=== PATIENT | female | born 1930 | race Caucasian/White ===

== ENCOUNTER 2016-04-18 10:19 | Outpatient (CLI) | payer MEDICARE ==
[2016-04-18 12:08] LABS: #Basophils 0.1 thou/uL (0.0-0.2); #Eosinphils 0.3 thou/uL (0.0-0.7); #Lymphocytes 1.8 thou/uL (1.20-3.40); #Monocytes 0.7 thou/uL (0.11-0.59); #Neutrophils 5.2 thou/uL (1.40-6.50); %Basophils 0.7 % (0.0-1.0); %Eosinophils 3.8 % (0.0-10.0); %Monocytes 8.4 % (0.0-10.0); Hematocrit 39.6 % (36.0-47.0); Mean Platelet Volume 5.6 fL (7.4-10.4); Red Blood Cell (RBC) Count 4.02 mill/uL (4.20-5.40)
[2016-04-18 12:17] LABS: ALT (SGPT) 16 U/L (0-55); AST (SGOT) 19 U/L (5-34); Alkaline Phosphatase 104 U/L (40-150); Anion Gap 15 mmol/L (10-20); BUN (Urea Nitrogen) 17 mg/dL (9.8-20.1); Bilirubin, Total 0.7 mg/dL (0.2-1.2); Calc. Creatinine Clearance 0 mL/min (70-130); Calcium 9.9 mg/dL (7.8-10.44); Carbon Dioxide 29 mmol/L (23-31); Chloride 101 mmol/L (98-107); Estimated GFR-MDRD 30; Globulin 3.3 g/dL (2.4-3.5); LDL Cholesterol, Calculated 60 mg/dL; Protein, Total 7.6 g/dL (5.8-8.1)
== END 2016-04-18 10:20 | disposition home or self-care (01) ==
LOC: HPCALD 10:19
PROVIDERS: ATTEND Family Medicine
DX: E78.5 Hyperlipidemia, unspecified (principal); I10 Essential (primary) hypertension
CPT/HCPCS: 36415; 80053; 80061; 85025

== ENCOUNTER 2016-09-26 10:42 | Outpatient (CLI) | payer MEDICARE ==
[2016-09-26 11:22] LABS: ALT (SGPT) 18 U/L (8-55); AST (SGOT) 20 U/L (5-34); Albumin 4.4 g/dL (3.4-4.8); Alkaline Phosphatase 99 U/L (40-150); Anion Gap 15 mmol/L (10-20); BUN (Urea Nitrogen) 17 mg/dL (9.8-20.1); Bilirubin, Direct 0.3 mg/dL (0.1-0.3); Bilirubin, Total 0.8 mg/dL (0.2-1.2); Calc. Creatinine Clearance 0 mL/min (70-130); Calcium 10.4 mg/dL (7.8-10.44); Carbon Dioxide 26 mmol/L (23-31); Cardiac Risk 4.8 (Less than 4.5); Chloride 105 mmol/L (98-107); Cholesterol 124 mg/dl (< 200 Desired); Estimated GFR-MDRD 40; Glucose 106 mg/dL (83-110); HDL Cholesterol 26 mg/dL (>60 Neg Risk); LDL Cholesterol, Calculated 61 mg/dL; Protein, Total 8.2 g/dL (6.0-8.3); Sodium 142 mmol/L (136-145); Triglycerides 184 mg/dL (Less than 150)
== END 2016-09-26 10:43 | disposition home or self-care (01) ==
LOC: BURLAB 10:42
PROVIDERS: ATTEND Internal Medicine Cardiovascular Disease
DX: E78.00 Pure hypercholesterolemia, unspecified (principal); I25.10 Atherosclerotic heart disease of native coronary artery without angina pectoris; E66.9 Obesity, unspecified
CPT/HCPCS: 36415; 80048; 80061; 80076

== ENCOUNTER 2018-02-21 11:59 | Emergency (ER) | payer MEDICARE ==
--- NOTE | 2018-02-21 19:30 | RAD ---
LEFT LEG TWO VIEWS: 02/21/18 The tibia and fibula both appear intact. No fractures were seen. Degenerative changes at the knee are minimal for age. There is some mild reticulation of the soft tissues indicating some swelling. IMPRESSION: No significant bony finding. POS: HOME
== END 2018-02-21 13:07 | disposition home or self-care (01) ==
LOC: BURERS 11:59
DX: S80.12XA Contusion of left lower leg, initial encounter (principal); I48.91 Unspecified atrial fibrillation; E78.5 Hyperlipidemia, unspecified; I10 Essential (primary) hypertension; Z79.899 Other long term (current) drug therapy; W19.XXXA Unspecified fall, initial encounter

== ENCOUNTER 2018-03-22 14:56 | Outpatient (CLI) | payer MEDICARE ==
--- NOTE | 2018-03-22 18:06 | RAD ---
LUMBAR SPINE THREE VIEWS: 03/22/2018 FINDINGS: Review of a 2014 MRI report was made. The patient has known scoliosis and extensive, severe degenera tive changes. Compared to the 2014 MRI, the L3 vertebral body seems slightly compressed. There are degenerated dis ks at all lumbar levels; however, there seems to be a little more narrowing at L4-L5 than before and perhaps a little more at L2-L3. Large anterior osteophytes are present. The SI joints are symmetric al. Dense calcification of the aorta is noted. IMPRESSION: 1. Moderately severe scoliosis with advanced degenerative changes throughout. 2. Multilevel degenerative disk disease, some disk spaces seeming a bit more narrow than in 2014. 3. There may be some very slight compression of L3, compared to the 2014 MRI. The patient would be best assessed by MRI. POS: HOME
== END 2018-03-22 14:57 | disposition home or self-care (01) ==
LOC: BURRAD 14:56
PROVIDERS: ATTEND Family Medicine
DX: M54.5 Low back pain (principal); M47.816 Spondylosis without myelopathy or radiculopathy, lumbar region; M51.36 Other intervertebral disc degeneration, lumbar region; M41.9 Scoliosis, unspecified
CPT/HCPCS: 72100

== ENCOUNTER 2018-04-01 10:36 | Emergency (ER) | payer MEDICARE | END 2018-04-01 11:07 | disposition home or self-care (01) | LOC: BURERS 10:36 | DX: L27.0 Generalized skin eruption due to drugs and medicaments taken internally (principal); T37.8X5A Adverse effect of other specified systemic anti-infectives and antiparasitics, initial encounter; I48.91 Unspecified atrial fibrillation; E78.5 Hyperlipidemia, unspecified; I10 Essential (primary) hypertension; Z79.899 Other long term (current) drug therapy; Z79.891 Long term (current) use of opiate analgesic | CPT/HCPCS: 99282 ==

== ENCOUNTER 2018-09-11 15:15 | Outpatient (CLI) | payer MEDICARE ==
--- NOTE | 2018-09-11 23:28 | CT ---
CT ABDOMEN AND PELVIS WITH CONTRAST: 09/11/2018 COMPARISON: 01/01/2016 TECHNIQUE: Axial slices were acquired after giving oral and IV contrast. Coronal reconstructions were then done . FINDINGS: ABDOMEN: The lung bases are clear. There are no effusions. A large hiatal hernia is noted centrall y, as before. The liver, spleen, pancreas, and gallbladder show no acute findings. No adrenal lencho s are seen. The aorta shows dense arteriosclerosis but no aneurysm. I would note that the patient's SMA, in particular, seems almost completely calcified at its origin. I am not sure if it might be o ccluded or not but, looking back at the prior scan, it looked the same then. There is a 2.5 cm cystic structure in the left kidney that has really not changed markedly over time. It is a water density. No stones, hydronephrosis, or ureteral calculi are seen. The bowel shows no distention to suggest obstruction. There are numerous diverticula in the left col on, which become somewhat severe in the sigmoid region. In spite of this, there is no large amount o f streaking to confidently diagnose diverticulitis at this time. Low level inflammation might be mis sed by this study, however. No free air or free fluid is seen. PELVIS: CT of the pelvis shows no pelvic masses, fluid collections, or acute inflammatory changes. Severe degenerative changes are present throughout the lumbar spine. IMPRESSION: 1. Large hiatal hernia, similar to older studies. 2. Presumed large cyst of the left kidney, little change director time. 3. Diverticulosis, particularly severe in the sigmoid region. There are no clear findings of divert iculitis at the moment. 4. 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 POS: HOME
== END 2018-09-11 15:16 | disposition home or self-care (01) ==
LOC: BURCT 15:15
PROVIDERS: ATTEND Family Medicine
DX: Z01.818 Encounter for other preprocedural examination (principal); R10.32 Left lower quadrant pain; K57.30 Diverticulosis of large intestine without perforation or abscess without bleeding; K55.1 Chronic vascular disorders of intestine; K44.9 Diaphragmatic hernia without obstruction or gangrene
CPT/HCPCS: 36415; 74177; 82565

== ENCOUNTER 2018-11-01 15:18 | Emergency (ER) | payer MEDICARE ==
[2018-11-01 15:42] LABS: Bilirubin Negative (Negative); Blood, Urine Moderate (Negative); Clarity Turbid (Clear); Glucose, Urine (Dipstick) Negative (Negative); Leukocyte Large (Negative); Nitrite Negative (Negative); Protein, Urine (Dipstick) 100 mg/dL (Neg-Trace)
[2018-11-01 15:55] LABS: Bacteria/HPF 4+ HPF (None Seen); Renal Epithelial 0-3 HPF (None Seen); WBC/HPF Greater Than 50 HPF (0-3)
[2018-11-01 16:01] LABS: #Lymphocytes 1.4 thou/uL (1.20-3.40); #Monocytes 0.7 thou/uL (0.11-0.59); #Neutrophils 9.4 thou/uL (1.40-6.50); %Basophils 0.4 % (0.0-1.0); %Eosinophils 0.3 % (0.0-10.0); %Lymphocytes 12.2 % (21.0-51.0); %Monocytes 5.9 % (0.0-10.0); %Neutrophils 81.2 % (42.0-75.0); Hemoglobin 12.6 g/dL (12.0-16.0); Mean Corpuscular HGB CONC 33.1 g/dL (32.0-36.0); Mean Corpuscular Volume 96.5 fL (78.0-98.0); Mean Platelet Volume 6.8 fL (7.4-10.4); Platelet Count 170 thou/uL (130-400); RBC Distribution Width 14.5 % (11.5-14.5); Red Blood Cell (RBC) Count 3.95 mill/uL (4.20-5.40); White Blood Cell (WBC) Count 11.6 thou/uL (4.8-10.8)
[2018-11-01 16:09] LABS: CRP (Inflammatory) Less than 0.50 mg/dL (= or < 0.5); Lipase 74 U/L (8-78)
[2018-11-01 16:46] LABS: ALT (SGPT) 16 U/L (8-55); AST (SGOT) 17 U/L (5-34); Albumin 4.1 g/dL (3.4-4.8); Alkaline Phosphatase 85 U/L (40-110); Anion Gap 14 mmol/L (10-20); BUN (Urea Nitrogen) 16 mg/dL (9.8-20.1); Bilirubin, Total 0.5 mg/dL (0.2-1.2); Calc. Creatinine Clearance 0 mL/min (70-130); Calcium 9.9 mg/dL (7.8-10.44); Carbon Dioxide 25 mmol/L (23-31); Chloride 103 mmol/L (98-107); Estimated GFR-MDRD 51; Globulin 2.7 g/dL (2.4-3.5); Glucose 198 mg/dL (83-110); Potassium 3.2 mmol/L (3.5-5.1); Protein, Total 6.8 g/dL (6.0-8.3); Sodium 139 mmol/L (136-145)
== END 2018-11-01 17:01 | disposition home or self-care (01) ==
LOC: BURERS 15:18
DX: N39.0 Urinary tract infection, site not specified (principal); I48.91 Unspecified atrial fibrillation; E78.5 Hyperlipidemia, unspecified; I12.9 Hypertensive chronic kidney disease with stage 1 through stage 4 chronic kidney disease, or unspecified chronic kidney disease; N18.9 Chronic kidney disease, unspecified; Z79.899 Other long term (current) drug therapy; Z79.01 Long term (current) use of anticoagulants
CPT/HCPCS: 80053; 81003; 81015; 83605; 83690; 84484; 85025; 86140; 87077; 87086; 87186; 93005

== ENCOUNTER 2019-03-21 14:45 | Emergency (ER) | payer MEDICARE ==
[2019-03-21 16:42] LABS: Bilirubin Small (Negative); Blood, Urine Moderate (Negative); Clarity Cloudy (Clear); Glucose, Urine (Dipstick) Negative (Negative); Leukocyte Large (Negative); Nitrite Negative (Negative); Protein, Urine (Dipstick) 100 mg/dL (Neg-Trace)
[2019-03-21 16:44] LABS: Bacteria/HPF 2+ HPF (None Seen); WBC/HPF Greater Than 50 HPF (0-3)
== END 2019-03-21 16:53 | disposition home or self-care (01) ==
LOC: BURERS 14:45
DX: N39.0 Urinary tract infection, site not specified (principal); I12.9 Hypertensive chronic kidney disease with stage 1 through stage 4 chronic kidney disease, or unspecified chronic kidney disease; N18.9 Chronic kidney disease, unspecified; I48.91 Unspecified atrial fibrillation; E78.5 Hyperlipidemia, unspecified; Z79.899 Other long term (current) drug therapy; Z79.891 Long term (current) use of opiate analgesic
CPT/HCPCS: 81003; 81015; 87086; 87804; 99284

== ENCOUNTER 2019-04-07 11:13 | Emergency (ER) | payer MEDICARE ==
[2019-04-07] MEDS ORDERED: Meclizine HCl 25 MG TAB ONE (11:37)
[2019-04-07 12:44] LABS: Bilirubin Negative (Negative); Blood, Urine Negative (Negative); Clarity Clear (Clear); Glucose, Urine (Dipstick) Negative (Negative); Leukocyte Large (Negative); Nitrite Positive (Negative); Protein, Urine (Dipstick) Negative (Neg-Trace); Urobilinogen 0.2 mg/dL (Less than 2)
[2019-04-07 12:47] LABS: Bacteria/HPF 2+ HPF (None Seen); RBC/HPF 0-3 HPF (0-3); Squamous Epithelial 0-3 HPF (0-3)
== END 2019-04-07 13:10 | disposition home or self-care (01) ==
LOC: BURERS 11:13
DX: N39.0 Urinary tract infection, site not specified (principal); R51 Headache; I48.91 Unspecified atrial fibrillation; E78.5 Hyperlipidemia, unspecified; I12.9 Hypertensive chronic kidney disease with stage 1 through stage 4 chronic kidney disease, or unspecified chronic kidney disease; N18.9 Chronic kidney disease, unspecified; Z79.899 Other long term (current) drug therapy
CPT/HCPCS: 81003; 81015; 87086; 99284; J8597

== ENCOUNTER 2019-05-27 13:44 | Emergency (ER) | payer MEDICARE ==
[2019-05-27 14:13] LABS: Bilirubin Small (Negative); Blood, Urine Negative (Negative); Glucose, Urine (Dipstick) Negative (Negative); Leukocyte Small (Negative); Nitrite Negative (Negative); Protein, Urine (Dipstick) 30 mg/dL (Neg-Trace); Urobilinogen 0.2 mg/dL (Less than 2)
[2019-05-27 14:14] LABS: Clarity Slightly Cloudy (Clear)
[2019-05-27 14:23] LABS: Bacteria/HPF Rare-Few HPF (None Seen); Mucous/LPF 1+ LPF (<2+); RBC/HPF 0-3 HPF (0-3)
[2019-05-27] MEDS ORDERED: Nitrofurantoin Monohyd/M-Cryst 100 MG CAP ONE (14:51)
== END 2019-05-27 14:57 | disposition home or self-care (01) ==
LOC: BURERS 13:44
DX: N39.0 Urinary tract infection, site not specified (principal); I48.91 Unspecified atrial fibrillation; E78.5 Hyperlipidemia, unspecified; I12.9 Hypertensive chronic kidney disease with stage 1 through stage 4 chronic kidney disease, or unspecified chronic kidney disease; N18.9 Chronic kidney disease, unspecified
CPT/HCPCS: 81003; 81015; 99283

== ENCOUNTER 2019-08-05 13:22 | Emergency (ER) | payer MEDICARE ==
[2019-08-05 14:17] LABS: Bilirubin Negative (Negative); Blood, Urine Trace (Negative); Clarity Cloudy (Clear); Glucose, Urine (Dipstick) Negative (Negative); Ketone, Urine Negative (Negative); Leukocyte Moderate (Negative); Nitrite Negative (Negative); Protein, Urine (Dipstick) Negative (Neg-Trace); Urobilinogen 0.2 mg/dL (Less than 2); pH, Urine 8.5 (5.0-9.0)
[2019-08-05 14:21] LABS: RBC/HPF 0-3 HPF (0-3); Squamous Epithelial 0-3 HPF (0-3)
[2019-08-05 14:22] LABS: Bacteria/HPF Rare-Few HPF (None Seen); Broad Cast None Seen LPF (None Seen); Calcium Oxalate Crystals None Seen HPF (None Seen); Cellular Cast None Seen LPF (None Seen); Epithelial Cast None Seen LPF (None Seen); Fatty Cast None Seen LPF (None Seen); Mucous/LPF None Seen LPF (<2+); Other Casts None Seen LPF (None Seen); Oval Fat Bodies/HPF None Seen HPF (None Seen); Red Blood Cell Cast None Seen LPF (None Seen); Renal Epithelial None Seen HPF (None Seen); Sperm/HPF None Seen HPF (None Seen); Transitional Epithelial None Seen HPF (None Seen); Trichomonas/HPF None Seen HPF (None Seen); Triple Phosphate Crystal None Seen HPF (None Seen); Unclassified Crystals None Seen HPF (None Seen); Waxy Cast None Seen LPF (None Seen); White Blood Cell Cast None Seen LPF (None Seen); Yeast-Budding None Seen HPF (None Seen); Yeast-Hyphae None Seen HPF (None Seen)
[2019-08-05] MEDS ORDERED: Sodium Chloride 0.9% 100 ML ONE (14:35)
[2019-08-05] MEDS ORDERED: cefTRIAXone\\ROCEPHIN 1 GM VIAL ONE (14:35)
[2019-08-05 14:44] LABS: #Basophils 0.1 thou/uL (0.0-0.2); #Eosinphils 0.1 thou/uL (0.0-0.7); #Lymphocytes 1.7 thou/uL (1.20-3.40); #Monocytes 0.9 thou/uL (0.11-0.59); #Neutrophils 10.8 thou/uL (1.40-6.50); %Basophils 0.5 % (0.0-1.0); %Eosinophils 0.6 % (0.0-10.0); %Lymphocytes 12.3 % (21.0-51.0); %Monocytes 6.6 % (0.0-10.0); Hemoglobin 13.1 g/dL (12.0-16.0); Mean Corpuscular HGB CONC 31.5 g/dL (32.0-36.0); Mean Corpuscular Hemoglobin 32.6 pg (27.0-31.0); Mean Platelet Volume 7.1 fL (7.4-10.4); Platelet Count 197 thou/uL (130-400); RBC Distribution Width 11.9 % (11.5-14.5); Red Blood Cell (RBC) Count 4.01 mill/uL (4.20-5.40); White Blood Cell (WBC) Count 13.4 thou/uL (4.8-10.8)
--- NOTE | 2019-08-05 14:51 | RAD ---
PORTABLE CHEST: Date: 08/05/2019 An AP portable film at 1410 hours is compared with the 02/04/2003 study from [facility]. The heart is mildly enlarged, but not substantially different than before. There are no congestive ch anges or pleural effusions. The lungs are mildly hyperexpanded. The patient's trachea deviates to the right just at or below the thoracic inlet. There was perhaps a slight curve here previously, but the patient was also turned to the side which would accentuate this . I would not be surprised if there was a substernal goiter on the left causing this. Further scans w ould be needed to prove it. Whether that is worth doing given the patient's age is another question t o be considered. There are no current findings of pneumonia. There are certainly not congestive rowe es. There may be a calcified granuloma in the right upper lobe, but it is uncertain if it is that or a costal cartilage calcification. IMPRESSION: 1. Mild cardiomegaly and some arteriosclerotic change. No congestive changes. 2. Mildly hyperexpanded lungs, but clear. 3. Deviation of the trachea to the right near the thoracic inlet. 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 See discussion above. This could be longstanding. POS: HOME
[2019-08-05 15:03] LABS: ALT (SGPT) 12 U/L (8-55); AST (SGOT) 15 U/L (5-34); Albumin 4.1 g/dL (3.4-4.8); Alkaline Phosphatase 103 U/L (40-110); Anion Gap 16 mmol/L (10-20); BUN (Urea Nitrogen) 14 mg/dL (9.8-20.1); Bilirubin, Total 0.8 mg/dL (0.2-1.2); Calc. Creatinine Clearance 0 mL/min (70-130); Calcium 9.7 mg/dL (7.8-10.44); Carbon Dioxide 25 mmol/L (23-31); Chloride 99 mmol/L (98-107); Estimated GFR-MDRD 56; Globulin 2.8 g/dL (2.4-3.5); Glucose 103 mg/dL (83-110); Lipase 64 U/L (8-78); Potassium 3.3 mmol/L (3.5-5.1); Protein, Total 6.9 g/dL (6.0-8.3); Sodium 137 mmol/L (136-145)
[2019-08-05] MEDS ORDERED: Ibuprofen 200 MG TAB ONE (15:16)
== END 2019-08-05 15:25 | disposition home or self-care (01) ==
LOC: BURERS 13:22
DX: N39.0 Urinary tract infection, site not specified (principal); R53.1 Weakness; I48.91 Unspecified atrial fibrillation; E78.5 Hyperlipidemia, unspecified; I12.9 Hypertensive chronic kidney disease with stage 1 through stage 4 chronic kidney disease, or unspecified chronic kidney disease; N18.9 Chronic kidney disease, unspecified; Z79.899 Other long term (current) drug therapy
CPT/HCPCS: 36415; 71045; 80053; 81003; 81015; 83690; 83880; 84484; 85025; 87086; 93005; J0696; J3490

== ENCOUNTER 2019-09-21 14:17 | Emergency (ER) | payer MEDICARE ==
[2019-09-21 14:38] LABS: Bilirubin Negative (Negative); Blood, Urine Trace (Negative); Clarity Cloudy (Clear); Glucose, Urine (Dipstick) Negative (Negative); Ketone, Urine Negative (Negative); Leukocyte Small (Negative); Nitrite Negative (Negative); Protein, Urine (Dipstick) Negative (Neg-Trace); Urobilinogen 0.2 mg/dL (Less than 2); pH, Urine 8.5 (5.0-9.0)
[2019-09-21 14:44] LABS: Bacteria/HPF 2+ HPF (None Seen); RBC/HPF 0-3 HPF (0-3); Squamous Epithelial 0-3 HPF (0-3)
[2019-09-21] MEDS ORDERED: cefTRIAXone\\ROCEPHIN 1 GM VIAL ONE ×2 (15:48)
[2019-09-21] MEDS ORDERED: Lidocaine 1% PF 5 ML VIAL ONE (15:48)
== END 2019-09-21 15:52 | disposition home or self-care (01) ==
LOC: BURERS 14:17
DX: N10 Acute pyelonephritis (principal); I48.91 Unspecified atrial fibrillation; E78.5 Hyperlipidemia, unspecified; I12.9 Hypertensive chronic kidney disease with stage 1 through stage 4 chronic kidney disease, or unspecified chronic kidney disease; N18.9 Chronic kidney disease, unspecified
CPT/HCPCS: 81003; 81015; 87086; 96372; 99283; J0696

== ENCOUNTER 2019-11-28 15:13 | Outpatient (CLI) | payer MEDICARE ==
[~2019-11-28 15:13] MED LIST: Iopamidol 370 76% 100 ML VIAL ONE
--- NOTE | 2019-11-28 20:44 | CT ---
CT OF THE BRAIN WITH AND WITHOUT CONTRAST: 11/28/[address] of the brain was done pre and post IV contrast. The ventricles are normal in size for age a nd atrophy. Some patchy deep white matter lucency is typical of chronic microvascular ischemia. This is most prominent in the posterior parietal regions bilaterally. There are a few areas that are suspi cious for old lacunar infarcts around the basal ganglia. There was no sign of acute stroke, though se nsitivity to such would be low on this study. There was no mass, edema, or bleeding. Once IV contrast was given, there were no areas of pathological enhancement. The vessels around the [place] appear to all fill appropriately. The anterior middle and posterior cerebral arteries fill well with contrast as does the superior cerebellar arteries, basilar artery and vertebral arteries. The paranas al sinuses are clear in this patient, as are the mastoid air cells. IMPRESSION: Atrophy and chronic ischemic changes but no acute findings. No posterior fossa abnormality seen with reference of the patient's dizziness. POS: HOME
== END 2019-11-28 15:14 | disposition home or self-care (01) ==
LOC: BURCT 15:13
PROVIDERS: ATTEND Family Medicine
DX: Z01.818 Encounter for other preprocedural examination (principal); R42 Dizziness and giddiness; R55 Syncope and collapse; I67.82 Cerebral ischemia; G31.9 Degenerative disease of nervous system, unspecified
CPT/HCPCS: 36415; 70470; 82565; Q9967

== ENCOUNTER 2020-03-07 15:53 | Emergency (ER) | payer MEDICARE ==
[2020-03-07 17:25] LABS: Bilirubin Negative (Negative); Blood, Urine Trace (Negative); Clarity Clear (Clear); Glucose, Urine (Dipstick) Negative (Negative); Ketone, Urine Negative (Negative); Leukocyte Moderate (Negative); Nitrite Negative (Negative); Protein, Urine (Dipstick) Negative (Neg-Trace); Urobilinogen 0.2 mg/dL (Less than 2)
[2020-03-07 17:30] LABS: Bacteria/HPF 3+ HPF (None Seen); RBC/HPF 0-3 HPF (0-3); Squamous Epithelial 0-3 HPF (0-3)
[2020-03-07] MEDS ORDERED: Nitrofurantoin Monohyd/M-Cryst 100 MG CAP ONE (18:06)
== END 2020-03-07 18:12 | disposition home or self-care (01) ==
LOC: BURERS 15:53
DX: N39.0 Urinary tract infection, site not specified (principal); I48.91 Unspecified atrial fibrillation; E78.5 Hyperlipidemia, unspecified; I12.9 Hypertensive chronic kidney disease with stage 1 through stage 4 chronic kidney disease, or unspecified chronic kidney disease; N18.9 Chronic kidney disease, unspecified
CPT/HCPCS: 81003; 81015; 99283

== ENCOUNTER 2020-05-02 11:58 | Emergency (ER) | payer MEDICARE ==
[2020-05-02 12:45] LABS: #Lymphocytes 1.1 thou/uL (1.20-3.40); #Monocytes 0.7 thou/uL (0.11-0.59); %Basophils 0.3 % (0.0-1.0); %Eosinophils 0.2 % (0.0-10.0); %Lymphocytes 10.1 % (21.0-51.0); %Monocytes 6.4 % (0.0-10.0); Hemoglobin 14.4 g/dL (12.0-16.0); Mean Corpuscular HGB CONC 33.7 g/dL (32.0-36.0); Mean Corpuscular Hemoglobin 33.2 pg (27.0-31.0); Mean Corpuscular Volume 98.7 fL (78.0-98.0); Mean Platelet Volume 7.4 fL (7.4-10.4); Platelet Count 182 thou/uL (130-400); RBC Distribution Width 12.7 % (11.5-14.5); Red Blood Cell (RBC) Count 4.34 mill/uL (4.20-5.40); White Blood Cell (WBC) Count 10.8 thou/uL (4.8-10.8)
[2020-05-02 13:03] LABS: ALT (SGPT) 15 U/L (8-55); AST (SGOT) 18 U/L (5-34); Alkaline Phosphatase 104 U/L (40-110); Anion Gap 17 mmol/L (10-20); BUN (Urea Nitrogen) 20 mg/dL (9.8-20.1); Calc. Creatinine Clearance 0 mL/min (70-130); Calcium 10.1 mg/dL (7.8-10.44); Carbon Dioxide 28 mmol/L (23-31); Chloride 92 mmol/L (98-107); Globulin 3.1 g/dL (2.4-3.5); Glucose 139 mg/dL (83-110); Potassium 3.6 mmol/L (3.5-5.1); Protein, Total 7.1 g/dL (5.8-8.1); Sodium 133 mmol/L (136-145)
[2020-05-02] MEDS ORDERED: Promethazine 25 MG TAB ONE (13:12)
[2020-05-02] MEDS ORDERED: Meclizine HCl 25 MG TAB ONE (13:12)
[2020-05-02 13:34] LABS: Bilirubin Negative (Negative); Blood, Urine Trace (Negative); Clarity Slightly Cloudy (Clear); Glucose, Urine (Dipstick) Negative (Negative); Ketone, Urine Negative (Negative); Leukocyte Moderate (Negative); Nitrite Negative (Negative); Protein, Urine (Dipstick) Negative (Neg-Trace); Urobilinogen 0.2 mg/dL (Less than 2)
[2020-05-02 13:38] LABS: Bacteria/HPF 2+ HPF (None Seen); Mucous/LPF 1+ LPF (<2+); RBC/HPF 0-3 HPF (0-3); Squamous Epithelial 0-3 HPF (0-3)
== END 2020-05-02 14:00 | disposition home or self-care (01) ==
LOC: BURERS 11:58
DX: N39.0 Urinary tract infection, site not specified (principal); R11.0 Nausea; I12.9 Hypertensive chronic kidney disease with stage 1 through stage 4 chronic kidney disease, or unspecified chronic kidney disease; N18.9 Chronic kidney disease, unspecified; I48.91 Unspecified atrial fibrillation; E78.5 Hyperlipidemia, unspecified; Z79.899 Other long term (current) drug therapy; Z79.01 Long term (current) use of anticoagulants
CPT/HCPCS: 36415; 71045; 80053; 81003; 81015; 83880; 84484; 85025; 93005; Q0169

== ENCOUNTER 2020-07-24 15:39 | Emergency (ER) | payer MEDICARE ==
[2020-07-24 16:17] LABS: Bilirubin Negative (Negative); Blood, Urine Trace (Negative); Clarity Cloudy (Clear); Glucose, Urine (Dipstick) Negative (Negative); Ketone, Urine Negative (Negative); Leukocyte Moderate (Negative); Nitrite Negative (Negative); Protein, Urine (Dipstick) Negative (Neg-Trace); Urobilinogen 0.2 mg/dL (Less than 2)
[2020-07-24 16:31] LABS: Bacteria/HPF 1+ HPF (None Seen); RBC/HPF 0-3 HPF (0-3); Squamous Epithelial 0-3 HPF (0-3); WBC/HPF 0-3 HPF (0-3)
[2020-07-24 16:33] LABS: #Eosinphils 0.1 thou/uL (0.0-0.7); #Lymphocytes 1.4 thou/uL (1.20-3.40); #Monocytes 0.7 thou/uL (0.11-0.59); #Neutrophils 7.6 thou/uL (1.40-6.50); %Basophils 0.4 % (0.0-1.0); %Eosinophils 1.1 % (0.0-10.0); %Lymphocytes 14.3 % (21.0-51.0); %Monocytes 7.3 % (0.0-10.0); %Neutrophils 76.9 % (42.0-75.0); Hemoglobin 13.4 g/dL (12.0-16.0); Mean Corpuscular HGB CONC 32.4 g/dL (32.0-36.0); Mean Corpuscular Hemoglobin 32.9 pg (27.0-31.0); Mean Platelet Volume 7.5 fL (7.4-10.4); Platelet Count 177 thou/uL (130-400); RBC Distribution Width 12.4 % (11.5-14.5); Red Blood Cell (RBC) Count 4.07 mill/uL (4.20-5.40); White Blood Cell (WBC) Count 9.9 thou/uL (4.8-10.8)
[2020-07-24 16:48] LABS: ALT (SGPT) 12 U/L (8-55); AST (SGOT) 16 U/L (5-34); Alkaline Phosphatase 138 U/L (40-110); Anion Gap 15 mmol/L (10-20); BUN (Urea Nitrogen) 10 mg/dL (9.8-20.1); Bilirubin, Total 0.7 mg/dL (0.2-1.2); CK (CPK) 57 U/L (29-168); Calc. Creatinine Clearance 0 mL/min (70-130); Calcium 9.7 mg/dL (7.8-10.44); Carbon Dioxide 29 mmol/L (23-31); Chloride 102 mmol/L (98-107); Globulin 3.1 g/dL (2.4-3.5); Glucose 96 mg/dL (83-110); Potassium 3.6 mmol/L (3.5-5.1); Protein, Total 7.1 g/dL (5.8-8.1); Sodium 142 mmol/L (136-145)
== END 2020-07-24 18:06 | disposition home or self-care (01) ==
LOC: BURERS 15:39
DX: R53.1 Weakness (principal); I48.91 Unspecified atrial fibrillation; I49.9 Cardiac arrhythmia, unspecified; E78.5 Hyperlipidemia, unspecified; I12.9 Hypertensive chronic kidney disease with stage 1 through stage 4 chronic kidney disease, or unspecified chronic kidney disease; N18.9 Chronic kidney disease, unspecified; Z79.899 Other long term (current) drug therapy; Z79.01 Long term (current) use of anticoagulants
CPT/HCPCS: 71046; 74177; 80053; 81003; 81015; 82550; 83605; 83735; 83880; 84443; 84484; 85025; 93005